=== PATIENT | female | born 1985 ===

== ENCOUNTER 2021-03-13 07:49 | Outpatient (CLI) | payer BC, SELFPAY ==
--- NOTE | 2021-04-04 21:25 | WPDHOMESLEEP ---
Sleep Study - Home Unattended Date of Study: 03/13/21 Ordering Provider: Pepe Talavera APRN Interpreting Provider: Martine Barreto MD Home Sleep Study Type: Watch PAT Height: 1.45 m Weight: 72.575 kg Body Mass Index: 34.6 Neck Circumference (inches): 15.50 [place]: 11 Reason for Sleep Study Insomnia, snoring Sleep History Della Rob is a 35 year old female with difficulties falling asleep. It usually takes her 2 hours to fall asleep. She goes to bed between 9:00 to 9:30 p.m. and does not fall asleep until 1:00 a.m.. She takes trazodone at night to help her initiate sleep but she does feel groggy in the morning so sometimes she takes only half of a tablet. She wakes around 6:00 a.m. to get ready for work. She wakes up feeling non refreshed. She is tired and fatigued throughout the day. Daytime naps are not refreshing. She snores at night. She does not gasp at night her wake up feeling short of breath or with choking. She has nocturia 1-2 times at night. she has multiple nighttime awake gaining and does not awaken feeling refreshed. She does not awaken from sleep feeling short of breath. She does not awaken at night with heartburn, belching or coughing. She occasionally snores but it is never loud enough that others complain about it. She constantly has trouble sleeping with a cold. She does not wake up gasping for breath at night. She does not have breathing problems at night reported to her by others. She frequently sweats excessively at night. She does not notice her heart pounding or beating irregularly at night. She constantly falls asleep during the day, rarely falls asleep involuntarily and never falls asleep while driving. She occasionally has loss of muscle tone with strong emotion. She constantly has daytime difficulties due to excessive sleepiness. She has a payment store operations associate. She occasionally feels paralyzed on waking or falling asleep. She occasionally has vivid dreamlike scenes upon awakening or falling asleep. She does not feel afraid to go to sleep. She occasionally has nightmares, occasionally remembers her dreams. She frequently has racing thoughts. She frequently feels sad or depressed. She constantly has anxiety. She occasionally has muscular tension. She constantly notices parts of her body jerking. She does not kick at night. She rarely has crawling and aching feelings in her legs. She does not have any kind of leg pain at night. She does not have morning jaw pain. She does not grind her teeth during sleep. She occasionally is bothered by pain during the day. She rarely is awakened by pain at night. She occasionally wakes up feeling stiff in the morning, rarely with sore or achy muscles rarely with pain in the neck and spine. She has fatigue, sexual problems, memory problems, headaches and insomnia. Normal bedtime is between 1:00 and 2:00 a.m., and the amount of time it takes her to fall asleep is variable. She usually wakes up between 2 and 3 times at night, and will use the bathroom, turn off the lights and locked the doors. She wakes in the morning at 6:00 a.m.. Her weekend schedule is similar, going to bed between 2 and 3:00 a.m. and waking around 8:00 a.m.. She estimates getting 4-5 hours of sleep nightly. She takes naps in the afternoon or evening. A short nap is not refreshing. She feels better in the morning compared to other times of day. Habits: smoke tobacco 17 years ago. Caffeine 1 bottle a day. Alcohol 1 drink per week. Recreational drugs are use [facility] Past Medical History Medical History (Updated 04/04/21 @ 22:08 by aMrtine Barreto MD) Chronic post-traumatic stress disorder (PTSD) Fatigue MISTY (generalized anxiety disorder) HTN (hypertension) Major depression Pseudotumor cerebri Type 2 diabetes mellitus Surgical History Surgical History (Updated 04/04/21 @ 22:12 by Martine Barreto MD) S/P x 4; tubal ligation S/P juan miguel
[2021-04-04 22:14] VITALS: BMI 34.6
== END 2021-03-15 13:04 | disposition home or self-care (01) ==
PROVIDERS: Visit Provider Nurse Practitioner Family
DX: G47.33 Obstructive sleep apnea (adult) (pediatric) (principal); G47.10 Hypersomnia, unspecified; R06.83 Snoring
CPT/HCPCS: 95800